=== PATIENT | male | born 1995 | race Caucasian/White ===

== ENCOUNTER 2021-03-02 20:21 | Emergency (ER) | payer SELFPAY ==
[~2021-03-02] VITALS: Ht 190.5 cm; Wt 90.7 kg
[2021-03-02 20:29] VITALS: BP 145/93
--- NOTE | 2021-03-02 20:45 | NUR ---
PATIENT 25 Y.O. BIB SELF FOR C/O TOOTHACHE X 1 WEEK. A & O X4. PATIENT STATES "I WENT TO GET MY TOOTH FIXED LAST YEAR IN [place], BUT I COULDN'T FINISH IT." PATIENT REPORTS PAIN 10/10 THAT IS SHARP. PATIENT REPORTS TAKING IBUPROFEN 800 MG TODAY WITHOUT RELIEF. PATIENT DENIES FEVER/CHILLS. NO NOTED SWELLING TO THE MOUTH. UPON OBSERVATION, RIGHT UPPER MOLAR NOTED TO BE CHIPPED. SKIN IS WARM, DRY AND INTACT. PATIENT DENIES SOB, CP. SEE COMPLETE ASSESSMENT FOR FURTHER DETAILS. MED HX: DENIES ALLERGIES: NKA
--- NOTE | 2021-03-02 20:51 | NUR ---
ERMD AT BEDSIDE.
[2021-03-02] MEDS ORDERED: HYDROcodone/APAP 5/325 MG 1 TAB TAB PO ONE (20:55)
[2021-03-02] MEDS ORDERED: KETOROLAC 15 MG/ML VIAL IM ONE (20:55)
[2021-03-02] MEDS ORDERED: IBUP-2213 PO (20:57)
[2021-03-02 21:09] VITALS: BP 145/93
--- NOTE | 2021-03-02 21:09 | NUR ---
Patient discharged with v/s stable. Written and verbal after care instructions given and explained. Patient alert, oriented and verbalized understanding of instructions. Ambulatory with steady gait. All questions addressed prior to discharge. ID band removed. Patient advised to follow up with PMD. Rx of IBUPROFEN given. Patient educated on indication of medication including possible reaction and side effects. Opportunity to ask questions provided and answered. CONFIRMED PATIENT NOT DRIVING SELF.
== END 2021-03-02 21:09 | disposition home or self-care (01) ==
LOC: MED 20:21
DX: K02.9 Dental caries, unspecified (principal)
CPT/HCPCS: 96372; 99283; J1885